=== PATIENT | male | born 1985 | race American Indian/Alaskan Native ===

== ENCOUNTER 2017-07-30 16:30 | Emergency (ER) | payer MEDICAID, OTHER ==
[2017-07-30 16:57] VITALS: BP 135/89; PULSE 84; RESP 16; TEMP 98.9; O2SAT 96
[2017-07-30] MEDS ORDERED: TDAP Vaccine 0.5 mL Syr IM ONE (17:25)
--- NOTE | 2017-07-30 17:27 | ED PDOC ---
Arrival/HPI - General Chief Complaint: Trauma Time Seen by Provider: 07/30/17 16:53 Historian: Patient - History of Present Illness Narrative History of Present Illness (Text): 07/30/17 17:18 A 32 year old male, with no significant past medical history, presents to the emergency department complaining of head and left pain. Patient reports having fallen while on the stairs 6 days ago and is uncertain of what may have happened. Patient did not seek medical attention after incident occurred until today. He notes experiencing dizziness when standing up and pain to left and back side of head. He also has pain to his upper back and shoulders. Patient denies any lower extremity injuries or pain, or any other complaints. Also, patient mentions after fall, tooth injured his left lip. Wounds currently healing. Denies any feeling of lose teeth. Tetanus shot is not up-to-date. No PMD Time/Duration: < week (fell 6 days ago) Past Medical History - Provider Review Nursing Documentation Reviewed: Yes - Psychiatric Hx Psychophysiologic Disorder: No Hx Substance Use: No Family/Social History - Physician Review Nursing Documentation Reviewed: Yes Family/Social History: No Known Family HX Smoking Status: Heavy Smoker > 10 Cigarettes Daily Hx Alcohol Use: Yes Frequency of alcohol use: Socially Hx Substance Use: No Allergies/Home Meds Allergies/Adverse Reactions: Allergies No Known Allergies Allergy (Verified 07/30/17 16:52) Home Medications: Home Meds Medication Instructions Recorded Confirmed No Known Home Med 07/30/17 07/30/17 Review of Systems - Physician Review All systems were reviewed & negative as marked: Yes - Review of Systems Musculoskeletal: Back Pain (upper back), Other (head pain (back and left side); denies any lower extremity pain or injuries). absent: Neck Pain Neurological: Dizziness (mostly when standing up) Physical Exam Vital Signs Reviewed: Yes Vital Signs Temp Pulse Resp BP Pulse Ox 07/30/17 16:52 98.9 F 84 16 135/89 96 Temperature: Afebrile Blood Pressure: Normal Pulse: Regular Respiratory Rate: Normal Appearance: Positive for: Well-Appearing Pain Distress: None Mental Status: Positive for: Alert and Oriented X 3 - Systems Exam Head: Present: Abrasion (abrasion to inside of left cheek). No: Tenderness Pupils: Present: PERRL Extroacular Muscles: Present: EOMI Conjunctiva: Present: Normal Ears: Present: Normal, NORMAL TM Mouth: Present: Normal Teeth, Other (tenderness to left jaw; no loose teeth; good director trial with tongue depresser). No: Normal Lips (abrasions to left upper and lower lip) Pharnyx: Present: Normal. No: ERYTHEMA, EXUDATE Nose (External): Present: Atraumatic Nose (Internal): Present: Normal Inspection Neck: Present: Normal Range of Motion. No: MIDLINE TENDERNESS, Paraspinal Tenderness Respiratory/Chest: Present: Clear to Auscultation, Good Air Exchange. No: Respiratory Distress, Accessory Muscle Use Cardiovascular: Present: Regular Rate and Rhythm Abdomen: Present: Normal Bowel Sounds. No: Tenderness, Distention Back: Present: Paraspinal Tenderness (upper back). No: Midline Tenderness Upper Extremity: Present: Normal Inspection, Normal ROM, NORMAL PULSES, Neurovascularly Intact. No: Edema Lower Extremity: Present: Normal Inspection, NORMAL PULSES, Normal ROM, Neurovascularly Intact. No: Edema Neurological: Present: GCS=15, CN II-XII Intact, Speech Normal, Motor Func Grossly Intact, Normal Sensory Function Skin: Present: Warm. No: Rashes Psychiatric: Present: Alert, Oriented x 3, Normal Insight, Normal Concentration Medical Decision Making ED Course and Treatment: 07/30/17 17:22 Impression: 32 year old male with pain s/p fall. Physical exam shows tenderness to left jaw, abrasion to left upper and lower lip; and abrasion to inside of left cheek. Differential Diagnosis included but are not limited to: Fall with head injury r /o Intramural Hemorrhage vs. Fracture Plan: -- Head CT -- Maxillofacial CT -- Tylenol -- Boostrix Vaccine -- Reassess and disposition Progress Notes: 07/30/17 18:[address] Ortiz to f/u CT, reevaluate and disposition. - RAD Interpretation Radiology Orders: 07/30/17 17:25 HEAD W/O CONTRAST [CT] Stat MAXILLOFACIAL W/O CONTRAST [CT] Stat - Medication Orders Current Medication Orders: Discontinued Medications Acetaminophen (Tylenol 325mg Tab) 650 mg PO STAT STA Stop: 07/30/17 17:27 Last Admin: 07/30/17 17:40 Dose: 650 mg MAR Pain/Vitals Document 07/30/17 17:40 OCS (Rec: 07/30/17 17:41 OCS [id number]) Pain Reassessment Is This A Pain ReAssessment? Yes Sleep Is patient sleeping during reassessment? No Presence of Pain Presence of Pain Yes Pain Scale Used Pain Scale Used Numeric Location Pain Location Body Powder Room Attendant Description Constant Tetanus/Reduced Diphtheria/Acell Pertussis (Boostrix Vaccine Inj) 0.5 ml IM .ONCE ONE Stop: 07/30/17 17:26 Last Admin: 07/30/17 17:40 Dose: 0.5 ml MAR Immunization Data Document 07/30/17 17:40 OCS (Rec: 07/30/17 17:40 [facility] [id number]) Immunization Data Vaccine Information Sheet Given No Vaccine Information Sheet Given Date 07/30/17 Immunization Registry Document 07/30/17 17:40 OCS (Rec: 07/30/17 17:40 [facility] [id number]) Immunization Registry Consent Date 07/30/17 - Scribe Statement The provider has reviewed the documentation as recorded by the Ralf Garvey Provider Scribe Attestation: All medical record entries made by the Pashaiblisa were at my direction and personally dictated by me. I have reviewed the chart and agree that the record accurately reflects my personal performance of the history, physical exam, medical decision making, and the department course for this patient. I have also personally directed, reviewed, and agree with the discharge instructions and disposition. Disposition/Present on Arrival - Present on Arrival Any Indicators Present on Arrival: No History of DVT/PE: No History of Uncontrolled Diabetes: No Urinary Catheter: No History of Decub. Ulcer: No History Surgical Site Infection Following: None - Disposition Have Diagnosis and Disposition been Completed?: Yes Diagnosis: Fall, Head injury, Contusion of jaw, Lip abrasion Disposition Time: 18:43 Condition: FAIR Referrals: PCP,NO [Primary Care Provider] - Follow up with primary Forms: [employer] (Uzbek)
--- NOTE | 2017-07-30 20:11 | ED PDOC ---
Physical Exam Vital Signs Reviewed: Yes Vital Signs Temp Pulse Resp BP Pulse Ox 07/30/17 16:52 98.9 F 84 16 135/89 96 Temperature: Afebrile Blood Pressure: Normal Pulse: Regular Respiratory Rate: Normal Appearance: Positive for: Well-Appearing Pain Distress: None Mental Status: Positive for: Alert and Oriented X 3 Medical Decision Making ED Course and Treatment: 07/30/17 19:22 Patient signed out to me by Dr. Contreras. Currently awaiting CT of Head and Maxillofacial.Pt. HPI noted.Pt. interviewed at bedside with .No complaints offered. 07/30/17 21:27 CT scan results noted.Pt. denies any toothache or gingival discomfort.Recommended follow up with his dentist in addition to follow up with neurologist. - RAD Interpretation Radiology Orders: 07/30/17 17:25 HEAD W/O CONTRAST [CT] Stat MAXILLOFACIAL W/O CONTRAST [CT] Stat - Medication Orders Current Medication Orders: Discontinued Medications Acetaminophen (Tylenol 325mg Tab) 650 mg PO STAT STA Stop: 07/30/17 17:27 Last Admin: 07/30/17 17:40 Dose: 650 mg [facility] Pain/Vitals Document 07/30/17 17:40 OCS (Rec: 07/30/17 17:41 OCS [id number]) Pain Reassessment Is This A Pain ReAssessment? Yes Sleep Is patient sleeping during reassessment? No Presence of Pain Presence of Pain Yes Pain Scale Used Pain Scale Used Numeric Location Pain Location Body Supply Chain Intern Description Constant Tetanus/Reduced Diphtheria/Acell Pertussis (Boostrix Vaccine Inj) 0.5 ml IM .ONCE ONE Stop: 07/30/17 17:26 Last Admin: 07/30/17 17:40 Dose: 0.5 ml [facility] Immunization Data Document 07/30/17 17:40 OCS (Rec: 07/30/17 17:40 OCS [id number]) Immunization Data Vaccine Information Sheet Given No Vaccine Information Sheet Given Date 07/30/17 Immunization Registry Document 07/30/17 17:40 OCS (Rec: 07/30/17 17:40 OCS [id number]) Immunization Registry Consent Date 07/30/17 Disposition/Present on Arrival - Present on Arrival Any Indicators Present on Arrival: No History of DVT/PE: No History of Uncontrolled Diabetes: No Urinary Catheter: No History of Decub. Ulcer: No History Surgical Site Infection Following: None - Disposition Have Diagnosis and Disposition been Completed?: Yes Diagnosis: Fall, Head injury, Contusion of jaw, Lip abrasion, Concussion Disposition: HOME/ ROUTINE Disposition Time: 21:29 Patient Plan: Discharge Condition: FAIR Discharge Instructions (ExitCare): Dental Abscess (ED), Concussion (ED), Head Injury (ED) Additional Instructions: Rest/no strenuous physical activity next few days/follow up with the neurologist and your dentist this week Prescriptions: Amoxicillin [Amoxil 500 mg Cap] 500 mg PO TID #21 cap Referrals: Dhruv Turner MD [Staff Provider] - Follow up with primary Tito Pandey DMD [Non-Staff] - Follow up with primary Forms: [facility] (French), WORK NOTE
--- NOTE | 2017-07-30 20:58 | CT ---
EXAM: CT Head Without Intravenous Contrast EXAM DATE/TIME: 07/30/2017 5:25 PM CLINICAL HISTORY: 32 years old, male; Injury or trauma; Fall; Initial encounter; Blunt trauma (contusions or hematomas); Consciousness not specified; Additional info: Fall with head injury R/O FX TECHNIQUE: Axial computed tomography images of the head/brain without intravenous contrast. All CT scans at this facility use one or more dose reduction techniques, viz.: automated exposure control; ma/kV adjustment per patient size (including targeted exams where dose is matched to indication; i.e. head); or iterative reconstruction technique. COMPARISON: No relevant prior studies available. FINDINGS: BRAIN: No significant acute abnormality identified. No acute hemorrhage seen within the brain. No acute extra-axial fluid collections visualized. No evidence of significant mass effect within the brain. VENTRICLES: Cavum septum pellucidum, a normal variant. BONES/JOINTS: No acute fractures or other acute bony abnormality noted. SOFT TISSUES: No acute abnormality of the visualized soft tissues is seen. SINUSES: Small mucus retention cysts in the left maxillary sinus. Small osteoma in a right ethmoid sinus. Remaining visualized paranasal sinuses appear clear. MASTOID AIR CELLS: Mastoid air cells appear clear. IMPRESSION: - No evidence of acute intracranial injury or fractures. - See above for remaining findings.
--- NOTE | 2017-07-30 21:07 | CT ---
EXAM: CT Maxillofacial Without Intravenous Contrast EXAM DATE/TIME: 07/30/2017 5:25 PM CLINICAL HISTORY: 32 years old, male; Injury or trauma; Fall; Initial encounter; Blunt trauma (contusions or hematomas); Jaw; Left; Additional info: Left jaw pain R/O FX TECHNIQUE: Axial computed tomography images of the face without intravenous contrast. All CT scans at this facility use one or more dose reduction techniques, viz.: automated exposure control; ma/kV adjustment per patient size (including targeted exams where dose is matched to indication; i.e. head); or iterative reconstruction technique. Coronal and sagittal reformatted images were created and reviewed. COMPARISON: No relevant prior studies available. FINDINGS: BONES/JOINTS: No acute fractures are seen. No evidence of acute dislocation. SOFT TISSUES: No evidence of soft tissue hematoma. ORBITS: Intraorbital soft tissues appear grossly intact. No evidence of significant orbital emphysema. SINUSES: Minimal to mild sinus inflammatory disease. Small mucus retention cysts in the left maxillary sinus. Minimal to mild mucosal thickening in the bilateral maxillary and ethmoid sinuses. Small osteoma in a right ethmoid sinus. No evidence of sinus fluid levels. DENTAL: Lucencies are seen surrounding the roots of 2 upper right teeth, image 59/series [id number], suspicious for multiple periodontal abscesses. IMPRESSION: - No acute facial bone fractures identified. - Incidental periodontal abscesses. - See above for remaining findings.
== END 2017-07-30 21:45 | disposition home or self-care (01) ==
LOC: ED 16:30
DX: S06.0X0A Concussion without loss of consciousness, initial encounter (principal); S00.83XA Contusion of other part of head, initial encounter; S00.511A Abrasion of lip, initial encounter; S09.90XA Unspecified injury of head, initial encounter; W10.9XXA Fall (on) (from) unspecified stairs and steps, initial encounter; F17.210 Nicotine dependence, cigarettes, uncomplicated; Z23 Encounter for immunization